=== PATIENT | female | born 1975 | race Caucasian/White ===

== ENCOUNTER 2016-09-07 03:07 | Emergency (ER) | payer SELFPAY ==
[2016-09-07] MEDS ORDERED: Albuterol-Ipratrop 3 mg / 0.5 (3 ml) UD ONE (03:15)
[2016-09-07] MEDS ORDERED: Albuterol-Ipratrop 3 mg / 0.5 (3 ml) UD INH STA (03:27)
[2016-09-07] MEDS ORDERED: Sodium Chloride 0.9% 1,000 ML IV ONE (03:36)
[2016-09-07] MEDS ORDERED: Albuterol 0.042% Inhal Sol (1.25 mg/3 mL) UD IH STA (03:36)
[2016-09-07] MEDS ORDERED: DiphenhydrAMINE 50 mg/ml Inj ONE (03:37)
[2016-09-07] MEDS ORDERED: DiphenhydrAMINE 50 mg/ml Inj IVP STA (03:38)
[2016-09-07] MEDS ORDERED: Albuterol 0.042% Inhal Sol (1.25 mg/3 mL) UD ONE (03:42)
--- NOTE | 2016-09-07 03:43 | C.PDOC ---
History Of Present Illness 40 year old female presents to the ED with complaints of shortness of breath after eating peanuts prior to arrival. Patient denies fever or vomiting. Chief Complaint (Nursing): Shortness Of Breath History Per: Patient History/Exam Limitations: no limitations Onset/Duration Of Symptoms: Hrs Current Symptoms Are (Timing): Still Present Initiating Event: Other (eating peanuts ) Associated Symptoms: denies: Fever, Chills, Chest Pain, Dizziness, Light- headedness Recent travel outside of the [place]: No Past Medical History Reviewed: Historical Data, Nursing Documentation, Vital Signs Vital Signs: Last Vital Signs Temp 97.8 F 09/07/16 03:18 Pulse 96 H 09/07/16 03:18 Resp 18 09/07/16 03:51 BP 138/83 09/07/16 03:18 Pulse Ox 96 09/07/16 05:23 Family History: States: Unknown Family Hx - Social History Hx Tobacco Use: Yes (light smoker) Hx Alcohol Use: Yes Hx Substance Use: No - Immunization History Hx Tetanus Toxoid Vaccination: Yes Hx Influenza Vaccination: Yes Hx Pneumococcal Vaccination: No Review Of Systems Constitutional: Negative for: Fever, Chills, Sweats Cardiovascular: Negative for: Chest Pain, Palpitations Respiratory: Positive for: Shortness of Breath Gastrointestinal: Negative for: Nausea, Vomiting, Abdominal Pain, Diarrhea Physical Exam - Physical Exam Appears: Non-toxic, No Acute Distress Skin: Warm, Dry, Other (Diffuse urticaria ) Head: Atraumatic Eye(s): bilateral: Normal Inspection, PERRL, EOMI Oral Mucosa: Moist Throat: Normal, No Erythema, No Exudate Neck: Supple Chest: Symmetrical, No Deformity Cardiovascular: Rhythm Regular Respiratory: No Rales, Rhonchi (bilateral rhonci ), No Stridor, Wheezing ( bilateral wheezing) Gastrointestinal/Abdominal: Soft, No Tenderness, No Distention, No Guarding, No Rebound ED Course And Treatment O2 Sat by Pulse Oximetry: 96 Progress Note: Patient is clinically improved, no longer SOB and resting, to be discharged with medrol dospak and. benadryl. Reevaluation Time: 05:23 Reassessment Condition: Improved Disposition Counseled Patient/Family Regarding: Diagnosis - Disposition Referrals: [facility] [Outside] Disposition: HOME/ ROUTINE Disposition Time: 05:24 Condition: IMPROVED Prescriptions: DiphenhydrAMINE [Benadryl] 25 mg PO Q6 #20 cap Methylprednisolone [Medrol Dose Pack (21 tabs)] 4 mg PO DAILY #21 mg Instructions: Food Allergy (ED), Antihistamine (By mouth) - POA Present On Arrival: None - Clinical Impression Clinical Impression: Allergic reaction, Wheezing without diagnosis of asthma - Scribe Statement The provider has reviewed the documentation as recorded by the Stefanieibregi Laboy All medical record entries made by the Gianna were at my direction and personally dictated by me. I have reviewed the chart and agree that the record accurately reflects my personal performance of the history, physical exam, medical decision making, and the department course for this patient. I have also personally directed, reviewed, and agree with the discharge instructions and disposition.
[2016-09-07 05:36] VITALS: BP 120/80; PULSE 80; RESP 14; TEMP 97.5; O2SAT 98
== END 2016-09-07 05:36 | disposition home or self-care (01) ==
LOC: C.ER 03:07
DX: T78.49XA Other allergy, initial encounter (principal); X58.XXXA Exposure to other specified factors, initial encounter; R06.2 Wheezing
CPT/HCPCS: 96374; 96375; 99284; J1200; J2930; J7040

== ENCOUNTER 2016-11-29 13:41 | Emergency (ER) | payer MEDICAID, OTHER ==
[2016-11-29 13:51] VITALS: BP 117/70; PULSE 70; RESP 18; TEMP 98.1; O2SAT 98
--- NOTE | 2016-11-29 14:30 | C.PDOC ---
History Of Present Illness 41 yr old female presents to the ER with complaints of a persistent cough for the past 1 month with mild SOB. Patient reports of smoking. States when she lays down in certain position, she feels like "hard of breath." Denies fever, chest pain, palpitation, nausea or vomiting. Denies recent travel or sick contact. Time Seen by Provider: 11/29/16 14:08 Chief Complaint (Nursing): Cough, Cold, Congestion History Per: Patient History/Exam Limitations: no limitations Onset/Duration Of Symptoms: Persistent (1 month) Sick Contacts (Context): None Recent travel outside of the [place]: No Past Medical History Reviewed: Historical Data, Nursing Documentation, Vital Signs Vital Signs: Last Vital Signs Temp 98.1 F 11/29/16 13:49 Pulse 70 11/29/16 13:49 Resp 18 11/29/16 13:49 BP 117/70 11/29/16 13:49 Pulse Ox 98 11/29/16 15:17 - Medical History PMH: No Chronic Diseases Family History: States: No Known Family Hx - Social History Hx Tobacco Use: Yes (light smoker) Hx Alcohol Use: Yes Hx Substance Use: No - Immunization History Hx Tetanus Toxoid Vaccination: Yes Hx Influenza Vaccination: Yes Hx Pneumococcal Vaccination: No Review Of Systems Except As Marked, All Systems Reviewed And Found Negative. Constitutional: Negative for: Fever Cardiovascular: Negative for: Chest Pain Respiratory: Positive for: Cough, Shortness of Breath (Mild) Gastrointestinal: Negative for: Nausea, Vomiting Physical Exam - Physical Exam Appears: Well, Non-toxic, No Acute Distress Skin: Normal Color, Warm, Dry, No Rash Head: Atraumatic, Normacephalic Eye(s): bilateral: Normal Inspection, PERRL, EOMI Ear(s): Bilateral: Normal Oral Mucosa: Moist Throat: No Erythema, No Exudate Neck: Normal, Normal ROM, Supple Chest: Symmetrical, No Tenderness Cardiovascular: Rhythm Regular, No Murmur Respiratory: Normal Breath Sounds, No Rales, No Rhonchi, No Stridor, No Wheezing Gastrointestinal/Abdominal: Soft, No Tenderness Back: Normal Inspection, No CVA Tenderness Extremity: Normal ROM, No Swelling Neurological/Psych: Oriented x3, Normal Speech, Normal Motor, Normal Sensation Gait: Steady ED Course And Treatment ECG: Interpreted By Me ECG Rhythm: Sinus Rhythm ECG Interpretation: Normal Interpretation Of ECG: normal axis Rate From EC (bpm) O2 Sat by Pulse Oximetry: 98 (RA) Pulse Ox Interpretation: Normal - Radiology CXR: Interpreted by Me CXR Interpretation: Yes: No Acute Disease. No: Infiltrates Medical Decision Making Medical Decision Making: PLAN: * CXR * EKG On re-exam, the patient reports the improvement of symptoms. Lungs are CTA, Lungs are CTA, Abdomen is soft, non-tender and patient is tolerating PO well. Patient is ambulatory in the ED with the steady gait. Follow up with the medical doctor within 1-2 days. Return if worsened. Disposition - Disposition Referrals: Kiran Garber MD [Staff Provider] - Disposition: HOME/ ROUTINE Disposition Time: 15:13 Condition: GOOD Additional Instructions: Follow up with the medical doctor within 1-2 days. Return if worsened. Prescriptions: Albuterol HFA [Ventolin HFA 90 mcg/actuation (8 g)] 1 puff IH Q6 PRN #1 inhaler PRN Reason: Shortness Of Breath Loratadine [Claritin] 10 mg PO DAILY #10 tab predniSONE [Prednisone] 20 mg PO BID #10 tab Spacer, Inhalation [Aerochamber] 1 inh IH QID #1 dev Instructions: Chronic Bronchitis (ED) Forms: [employer] (Irish) - Clinical Impression Clinical Impression: Bronchitis - PA / STOCK TRADER / Resident Statement MD/DO has reviewed & agrees with the documentation as recorded. - Scribe Statement The provider has reviewed the documentation as recorded by the Scribe Alana Mari All medical record entries made by the Scribe were at my direction and personally dictated by me. I have reviewed the chart and agree that the record accurately reflects my personal performance of the history, physical exam, medical decision making, and the department course for this patient. I have also personally directed, reviewed, and agree with the discharge instructions and disposition.
--- NOTE | 2016-11-29 14:50 | RAD ---
HISTORY: cough x 1 month, mild SOB COMPARISON: 06/30/2015 TECHNIQUE: Chest PA and lateral FINDINGS: LUNGS: No active pulmonary disease. PLEURA: No significant pleural effusion identified. No pneumothorax apparent. CARDIOVASCULAR: Normal. OSSEOUS STRUCTURES: No significant abnormalities. VISUALIZED UPPER ABDOMEN: Normal. OTHER FINDINGS: None. IMPRESSION: No active disease.
== END 2016-11-29 15:48 | disposition home or self-care (01) ==
LOC: C.ER 13:41
DX: J40 Bronchitis, not specified as acute or chronic (principal); F17.210 Nicotine dependence, cigarettes, uncomplicated

== ENCOUNTER 2017-05-12 18:55 | Emergency (ER) | payer SELFPAY ==
[2017-05-12 19:50] LABS: HCG,QUALITATIVE URINE POSITIVE (NEGATIVE)
[2017-05-12 19:51] LABS: SQUAMOUS EPITHIAL < 1 /hpf (0-5); URINE BACTERIA RARE (<OCC); URINE BILIRUBIN NEGATIVE (NEGATIVE); URINE BLOOD NEGATIVE (NEGATIVE); URINE CLARITY Clear (Clear); URINE COLOR Straw (YELLOW); URINE GLUCOSE (UA) NORMAL (Normal); URINE LEUKOCYTE ESTERASE NEG Leu/uL (Negative); URINE NITRATE NEGATIVE (NEGATIVE); URINE PROTEIN NEGATIVE (NEGATIVE); URINE UROBILINOGEN NORMAL mg/dL (0.2-1.0)
--- NOTE | 2017-05-12 20:35 | C.PDOC ---
History Of Present Illness 41yo female, , presents to ER for evaluation of abdominal cramping and lower back pain for the past week. patient reports she presents today as her abdominal cramping has worsened over the past week. She reports her LMP was on and she took a home test 2 days ago, which was positive. She denies any vaginal bleeding or discharge. Patient states she is concerned as she has had 2 miscarriages in the past and her symptoms currently present like the past miscarriages. She denies any fever, chills, nausea, vomiting or diarrhea. No other complaints. Time Seen by Provider: 05/12/17 20:20 Chief Complaint (Nursing): Abdominal Pain History Per: Patient History/Exam Limitations: no limitations Onset/Duration Of Symptoms: Days Current Symptoms Are (Timing): Still Present Location Of Pain/Discomfort: Diffuse Radiation Of Pain To:: Back Quality Of Discomfort: Cramping Associated Symptoms: denies: Fever, Chills, Nausea, Vomiting, Diarrhea Abnormal Vaginal Bleeding: No Last Menstral Period: 04/11/17 : 3 Para: 0 Miscarriage: 2 Past Medical History Reviewed: Historical Data, Nursing Documentation, Vital Signs Vital Signs: Last Vital Signs Temp 97.9 F 05/12/17 23:39 Pulse 66 05/12/17 23:39 Resp 20 05/12/17 23:39 BP 103/65 05/12/17 23:39 Pulse Ox 98 05/12/17 23:39 - Medical History PMH: No Chronic Diseases Surgical History: No Surg Hx Family History: States: No Known Family Hx - Social History Hx Tobacco Use: Yes (light smoker) Hx Alcohol Use: No Hx Substance Use: No - Immunization History Hx Tetanus Toxoid Vaccination: Yes Hx Influenza Vaccination: Yes Hx Pneumococcal Vaccination: No Review Of Systems Except As Marked, All Systems Reviewed And Found Negative. Constitutional: Negative for: Fever, Chills Gastrointestinal: Positive for: Abdominal Pain. Negative for: Nausea, Vomiting , Diarrhea Genitourinary: Negative for: Vaginal Discharge, Vaginal Bleeding Musculoskeletal: Positive for: Back Pain Physical Exam - Physical Exam Appears: Non-toxic, No Acute Distress Skin: Normal Color, Warm, Dry Head: Normacephalic Eye(s): bilateral: Normal Inspection Nose: Normal Neck: Normal ROM, Supple Chest: Symmetrical Cardiovascular: Rhythm Regular Respiratory: Normal Breath Sounds Gastrointestinal/Abdominal: Normal Exam, Soft, No Tenderness Back: Normal Inspection Extremity: Normal ROM Neurological/Psych: Oriented x3, Normal Speech, Normal Cognition ED Course And Treatment O2 Sat by Pulse Oximetry: 100 (RA) Pulse Ox Interpretation: Normal Medical Decision Making Medical Decision Making: Plan: -- Labs -- US Transvaginal Time: 2328 US Transvaginal EXAM: US , Transvaginal CLINICAL HISTORY: 41 years old, female; Pain; Other: Abd pain; Gestational age or lmp: 04-11-2017; ; Additional info: Abdominal pain TECHNIQUE: Real-time transvaginal obstetrical ultrasound of the maternal pelvis and a first trimester with image documentation. Transvaginal imaging was used for better evaluation of the fetus and adnexa. COMPARISON: No relevant prior studies available. FINDINGS: Gestation: 0.4 x 0.3 x 0.4 cm saclike structure within uterus. No yolk sac. No pole. Uterus/cervix: 3.4 x 2.9 x 3.8 cm uterine mass. Endometrium: 0.7 cm in thickness. Closed cervix. Ovaries: Normal ovaries. No adnexal masses. Free fluid: Small free fluid within pelvis. IMPRESSION: 1. Sac without pole or yolk sac. DDX: Early IUP, blighted ovum, ectopic (with pseudogestational sac). Followup is recommended. 2. Probable fibroid. 3. Incidental/non-acute findings are described above Disposition - Disposition Referrals: Bhupinder Melgar MD [Staff Provider] - Disposition: HOME/ ROUTINE Disposition Time: 06:55 Condition: FAIR Instructions: Tests, How to Adapt to Physical Changes During Forms: [employer] (Ukrainian) Print Language: GERMAN - Clinical Impression Clinical Impression: Discomfort during - Scribe Statement The provider has reviewed the documentation as recorded by the Scribe (Ursula Rocha) Provider Attestation: All medical record entries made by the Scribe were at my direction and personally dictated by me. I have reviewed the chart and agree that the record accurately reflects my personal performance of the history, physical exam, medical decision making, and the department course for this patient. I have also personally directed, reviewed, and agree with the discharge instructions and disposition.
--- NOTE | 2017-05-12 23:05 | US ---
EXAM: US First Trimester, Transabdominal CLINICAL HISTORY: 41 years old, female; Pain; Other: Abd pain; Gestational age or lmp: 04-11-2017; ; Additional info: Abdominal pain TECHNIQUE: Real-time transabdominal obstetrical ultrasound of the maternal pelvis and a first trimester with image documentation. COMPARISON: No relevant prior studies available. FINDINGS: Gestation: 0.4 x 0.3 x 0.4 cm saclike structure within uterus. No yolk sac. No pole. Uterus/cervix: 3.4 x 2.9 x 3.8 cm uterine mass. Endometrium: 0.7 cm in thickness. Closed cervix. Ovaries: Normal ovaries. No adnexal masses. Free fluid: Small free fluid within pelvis. IMPRESSION: 1. Sac without pole or yolk sac. DDX: Early IUP, blighted ovum, ectopic (with pseudogestational sac). Followup is recommended. 2. Probable fibroid. 3. Incidental/non-acute findings are described above. EXAM: US , Transvaginal CLINICAL HISTORY: 41 years old, female; Pain; Other: Abd pain; Gestational age or lmp: 04-11-2017; ; Additional info: Abdominal pain TECHNIQUE: Real-time transvaginal obstetrical ultrasound of the maternal pelvis and a first trimester with image documentation. Transvaginal imaging was used for better evaluation of the fetus and adnexa. COMPARISON: No relevant prior studies available. FINDINGS: Gestation: 0.4 x 0.3 x 0.4 cm saclike structure within uterus. No yolk sac. No pole. Uterus/cervix: 3.4 x 2.9 x 3.8 cm uterine mass. Endometrium: 0.7 cm in thickness. Closed cervix. Ovaries: Normal ovaries. No adnexal masses. Free fluid: Small free fluid within pelvis.
[2017-05-12 23:41] VITALS: BP 103/65; PULSE 66; RESP 20; TEMP 97.9
[2017-05-13 06:57] VITALS: O2SAT 100
== END 2017-05-12 23:41 | disposition home or self-care (01) ==
LOC: C.ER 18:55
DX: O26.891 Other specified pregnancy related conditions, first trimester (principal); Z3A.00 Weeks of gestation of pregnancy not specified

== ENCOUNTER 2017-05-14 13:37 | Emergency (ER) | payer SELFPAY | END 2017-05-14 14:24 | disposition left against medical advice (07) | LOC: C.ER 13:37 | DX: Z02.89 Encounter for other administrative examinations (principal); R06.02 Shortness of breath ==

== ENCOUNTER 2017-05-14 20:32 | Emergency (ER) | payer SELFPAY ==
[2017-05-14 21:08] VITALS: TEMP 97.8
[2017-05-14] MEDS ORDERED: Sodium Chloride 0.9% 1,000 ML IV ONE (21:13)
--- NOTE | 2017-05-14 21:13 | C.PDOC ---
History Of Present Illness Patient presents to ED with complaints of cough, wheezing and shortness of breath. Patient states her asthma might be acting up. She denies any fever, chills, nausea or vomiting. Of note, patient is 5 weeks . She has no other complaints. Time Seen by Provider: 05/14/17 21:12 Chief Complaint (Nursing): Chest Pain History Per: Patient History/Exam Limitations: no limitations Onset/Duration Of Symptoms: Days Current Symptoms Are (Timing): Still Present Past Medical History Reviewed: Historical Data, Nursing Documentation, Vital Signs Vital Signs: Last Vital Signs Temp 97.8 F 05/14/17 21:03 Pulse 100 H 05/14/17 21:03 Resp 20 05/14/17 21:03 BP 117/70 05/14/17 21:03 Pulse Ox 97 05/14/17 23:36 - Medical History PMH: Bronchitis Surgical History: No Surg Hx Family History: States: No Known Family Hx - Social History Hx Tobacco Use: Yes (light smoker) Hx Alcohol Use: No Hx Substance Use: No - Immunization History Hx Tetanus Toxoid Vaccination: Yes Hx Influenza Vaccination: No Hx Pneumococcal Vaccination: No Review Of Systems Constitutional: Negative for: Fever, Chills Respiratory: Positive for: Cough, Shortness of Breath, Wheezing Gastrointestinal: Negative for: Nausea, Vomiting Physical Exam - Physical Exam Appears: Non-toxic Skin: Normal Color Head: Normacephalic Eye(s): bilateral: Normal Inspection Oral Mucosa: Moist Neck: Supple Chest: Symmetrical Cardiovascular: Rhythm Regular Respiratory: No Rales, No Rhonchi, Wheezing (diffuse wheezing noted) Back: Normal Inspection Extremity: Normal ROM Extremity: Bilateral: Atraumatic Neurological/Psych: Oriented x3 Gait: Steady ED Course And Treatment - Laboratory Results Result Diagrams: 05/14/17 21:58 05/14/17 21:58 O2 Sat by Pulse Oximetry: 97 (RA) Pulse Ox Interpretation: Normal Reevaluation Time: 23:34 Reassessment Condition: Improved Critical Care Time - Critical Care Note Total Time (in mins): 30 Documented critical care: time excludes all time spent performing seperately billable procedures. Disposition Counseled Patient/Family Regarding: Studies Performed, Diagnosis, Need For Followup, Rx Given - Disposition Referrals: [facility] [Outside] [facility] [Outside] Disposition: HOME/ ROUTINE Disposition Time: 21:13 Condition: FAIR Prescriptions: Albuterol HFA [Ventolin HFA 90 mcg/actuation (8 g)] 2 puff IH [id number] #1 puff Prednisone [Deltasone] 20 mg PO DAILY #5 tablet Instructions: Asthma, Adult (DC) Forms: [employer] (C[place]ican) - Clinical Impression Clinical Impression: Asthma exacerbation - Scribe Statement The provider has reviewed the documentation as recorded by the Scribe (Ursula Rocha) Provider Attestation: All medical record entries made by the Scribe were at my direction and personally dictated by me. I have reviewed the chart and agree that the record accurately reflects my personal performance of the history, physical exam, medical decision making, and the department course for this patient. I have also personally directed, reviewed, and agree with the discharge instructions and disposition.
[2017-05-14] MEDS: Albuterol-Ipratrop 3 mg / 0.5 (3 ml) UD IH SCH ×3 (21:35→22:00)
[2017-05-14] MEDS ORDERED: Albuterol-Ipratrop 3 mg / 0.5 (3 ml) UD ONE (21:43)
[2017-05-14] MEDS ORDERED: Sodium Chloride 0.9% 1,000 ML ONE (21:44)
[2017-05-14 22:02] LABS: BASO # 0.1 K/uL (0.0-0.2); BASO % 0.9 % (0.0-2.0); EOS # 0.9 K/uL (0.0-0.7); EOS % 13.9 % (0.0-4.0); HEMOGLOBIN 13.5 g/dL (11.0-16.0); LYMPH # 2.2 K/uL (1.0-4.3); LYMPH % 33.1 % (20.0-40.0); MEAN CELL VOLUME 91.4 fL (81.0-99.0); MEAN CORPUSCULAR HEMOGLOBIN 31.6 pg (27.0-31.0); MEAN CORPUSCULAR HGB CONC 34.6 g/dL (33.0-37.0); MEAN PLATELET VOLUME 8.6 fL (7.2-11.7); MONO # 0.8 K/uL (0.0-0.8); MONO % 12.7 % (0.0-10.0); NEUT # 2.6 K/uL (1.8-7.0); NEUT % 39.4 % (50.0-75.0); RBC 4.27 Mil/uL (3.80-5.20); RED CELL DISTRIBUTION WIDTH 13.2 % (11.5-14.5); WHITE BLOOD COUNT 6.7 K/uL (4.8-10.8)
[2017-05-14 22:11] LABS: INR 0.9; PROTHROMBIN TIME 9.8 SECONDS (9.7-12.2)
[2017-05-14 22:16] LABS: ALB/GLOB RATIO 1.3 (1.0-2.1); ALBUMIN 4.6 g/dL (3.5-5.0); ALT/SGPT 33 U/L (9-52); AST/SGOT 30 U/L (14-36); BLOOD UREA NITROGEN 16 mg/dL (7-17); CALCIUM 9.4 mg/dl (8.6-10.4); GFR AFRICAN-AMERICAN > 60; GFR NON-AFRICAN AMERICAN > 60
[2017-05-14 23:57] VITALS: BP 138/71; PULSE 76; RESP 18; O2SAT 99
== END 2017-05-14 23:58 | disposition home or self-care (01) ==
LOC: C.ER 20:32
DX: O26.891 Other specified pregnancy related conditions, first trimester (principal); Z3A.01 Less than 8 weeks gestation of pregnancy; J45.901 Unspecified asthma with (acute) exacerbation
CPT/HCPCS: 80053; 84702; 85025; 85610; 85730; 96361; 96374; 99284; J2930; J7040